=== PATIENT | male | born 1960 | race Caucasian/White ===

== ENCOUNTER 2017-08-25 10:54 | Emergency (ER) | payer OTHER ==
[~2017-08-25] VITALS: Ht 172.7 cm; Wt 100.0 kg
[~2017-08-25 10:54] MED LIST: ASPI-101 PO; DIOV320T PO; LIPI20TA PO; METF10004 PO
[2017-08-25] MEDS ORDERED: IBUP-1022 PO (11:16)
[2017-08-25] MEDS ORDERED: TYLE325T5 PO (11:16)
[2017-08-25] MEDS ORDERED: CYCL5TAB (11:16)
[2017-08-25 12:00] LABS: BASO % 0.3 % (0.0-1.0); EOS # 0.1 10^3/uL (0.0-0.50); EOS % 0.9 % (0.0-3.0); IMMATURE GRANULOCYTE % 0.4 % (0-0); LYMPH # 1.4 10^3/uL (1.5-4.5); LYMPH % 16.9 % (24.0-44.0); MEAN CORPUSCULAR HEMOGLOBIN 27.8 pg (27.0-33.0); MEAN CORPUSCULAR HGB CONC 33.4 g/dl (32.0-36.5); MEAN CORPUSCULAR VOLUME 83.3 fl (80.0-96.0); MONO # 0.7 10^3/uL (0.0-0.8); MONO % 8.3 % (0.0-5.0); NEUTROPHILS # 5.9 10^3/uL (1.8-7.7); NEUTROPHILS % 73.2 % (36.0-66.0); PLATELET COUNT, AUTOMATED 240 10^3/uL (150-450); RED CELL DISTRIBUTION WIDTH 13.7 % (11.5-14.5)
[2017-08-25 12:31] LABS: ANION GAP 6 MEQ/L (8-16); BLOOD UREA NITROGEN 14 MG/DL (7-18); CALCIUM LEVEL 8.6 MG/DL (8.5-10.1); CARBON DIOXIDE LEVEL 28 MEQ/L (21-32); CHLORIDE LEVEL 102 MEQ/L (98-107); CREATININE FOR GFR 1.06 MG/DL (0.70-1.30); GLOMERULAR FILTRATION RATE > 60.0 (>56); GLUCOSE, FASTING 289 MG/DL (70-105); POTASSIUM SERUM 4.2 MEQ/L (3.5-5.1); SODIUM LEVEL 136 MEQ/L (136-145)
[2017-08-25 12:57] LABS: ERYTHROCYTE SEDIMENTATION RATE 2 mm/hr (0-20)
--- NOTE | 2017-08-25 13:14 | REP ---
LEFT KNEE, FIVE VIEWS: HISTORY: Pain. There is no acute fracture or dislocation. There is narrowing of the medial knee joint space. IMPRESSION: Degenerative change as described above. Signed by Dm Rjoas MD 08/25/2017 01:20 P
[2017-08-25] MEDS ORDERED: NAPR500T3 PO (13:21)
[2017-08-25] MEDS ORDERED: KETOROLAC 60 MG/2 ML VIAL (J1885) IM ONE (13:30)
[2017-08-25 14:01] VITALS: BP 148/80
== END 2017-08-25 14:04 | disposition home or self-care (01) ==
LOC: M ED 10:54
DX: M25.562 Pain in left knee (principal); R73.9 Hyperglycemia, unspecified; Z87.891 Personal history of nicotine dependence
CPT/HCPCS: 73564; 80048; 85025; 85652; 86140; 96372; 99284; J1885

== ENCOUNTER → 2017-08-29 | Outpatient (REF) | payer OTHER ==
[~2017-08-29] MED LIST changes: +CYCL5TAB; +IBUP-1022 PO; +NAPR500T3 PO; +TYLE325T5 PO
[2017-08-29 19:15] LABS: CHOLESTEROL LEVEL 270 MG/DL (<200); TRIGLYCERIDES LEVEL 244 MG/DL (<150)
[2017-08-30 11:29] LABS: HEPATITIS B SURFACE ANTIBODY POSITIVE (POSITIVE)
== END ==
LOC: M SFHCPLAZ 15:36
DX: E11.9 Type 2 diabetes mellitus without complications (principal); E78.5 Hyperlipidemia, unspecified

== ENCOUNTER 2017-10-31 09:06 | Day surgery (SDC) | payer OTHER ==
[2017-10-31] MEDS: NS 1,000 ML IV (09:30)
[2017-10-31] MEDS ORDERED: PROPOFOL 200 MG/20 ML VIAL As Ordered ×2 (10:51)
[2017-10-31] MEDS ORDERED: LIDOCAINE 2% INJ 100 MG/5 ML SDV (FOR ANES.) As Ordered (10:51)
== END 2017-10-31 11:50 | disposition home or self-care (01) ==
LOC: M OPP 09:06
DX: Z12.11 Encounter for screening for malignant neoplasm of colon (principal); K64.8 Other hemorrhoids; I10 Essential (primary) hypertension; E78.5 Hyperlipidemia, unspecified; E11.9 Type 2 diabetes mellitus without complications; M19.90 Unspecified osteoarthritis, unspecified site; Z85.51 Personal history of malignant neoplasm of bladder; Z86.13 Personal history of malaria; E66.9 Obesity, unspecified; Z79.82 Long term (current) use of aspirin; Z79.899 Other long term (current) drug therapy; Z79.84 Long term (current) use of oral hypoglycemic drugs
CPT/HCPCS: 45378

== ENCOUNTER 2017-12-02 09:00 | Outpatient (RCR) | payer OTHER | END 2017-12-21 | LOC: M PT 09:00 | DX: Z51.89 Encounter for other specified aftercare (principal); M19.90 Unspecified osteoarthritis, unspecified site | CPT/HCPCS: 97110 ==

== ENCOUNTER 2017-12-26 11:06 | Outpatient (RCR) | payer OTHER | END 2018-01-20 | LOC: M PT 11:06 | DX: Z51.89 Encounter for other specified aftercare (principal); M17.12 Unilateral primary osteoarthritis, left knee | CPT/HCPCS: 97110 ==

== ENCOUNTER → 2018-04-03 | Outpatient (REF) | payer OTHER ==
[2018-04-03 16:39] LABS: ESTIMATED AVERAGE GLUCOSE 280 MG/DL (60-110); HEMOGLOBIN A1c 11.4 %
[2018-04-03 18:22] LABS: MAU/CREAT RATIO 218.3 MCG/MG (0.0-30.0)
== END ==
LOC: M SFHCPLAZ 14:24
DX: E11.9 Type 2 diabetes mellitus without complications (principal)

== ENCOUNTER → 2018-07-10 | Outpatient (REF) | payer OTHER ==
[2018-07-10 16:09] LABS: APPEARANCE, URINE CLEAR (CLEAR); BACTERIA, URINE AUTO NEGATIVE (NEGATIVE); BASO % 0.4 % (0.0-1.0); BILIRUBIN, URINE AUTO NEGATIVE (NEGATIVE); BLOOD, URINE BLOOD NEGATIVE (NEGATIVE); COLOR, URINE YELLOW (YELLOW); EOS # 0.2 10^3/uL (0.0-0.50); EOS % 2.2 % (0.0-3.0); GLUCOSE, URINE (UA) AUTO 3+ mg/dL (NEGATIVE); HEMATOCRIT 42.8 % (42.0-52.0); IMMATURE GRANULOCYTE % 0.3 % (0-3.0); KETONE, URINE AUTO NEGATIVE (NEGATIVE); LEUKOCYTE ESTERASE, URINE AUTO NEGATIVE (NEGATIVE); LYMPH % 28.9 % (24.0-44.0); MEAN CORPUSCULAR HEMOGLOBIN 27.2 pg (27.0-33.0); MEAN CORPUSCULAR HGB CONC 32.7 g/dl (32.0-36.5); MEAN CORPUSCULAR VOLUME 83.1 fl (80.0-96.0); MONO # 0.8 10^3/uL (0.0-0.8); MONO % 11.8 % (0.0-5.0); MUCUS, URINE SMALL (NEGATIVE); NEUTROPHILS # 3.9 10^3/uL (1.8-7.7); NEUTROPHILS % 56.4 % (36.0-66.0); NITRITE, URINE AUTO NEGATIVE (NEGATIVE); PLATELET COUNT, AUTOMATED 248 10^3/uL (150-450); PROTEIN, URINE AUTO NEGATIVE (NEGATIVE); RBC, URINE AUTO 2 /HPF (0-3); RED BLOOD COUNT 5.15 10^6/uL (4.30-6.10); RED CELL DISTRIBUTION WIDTH 13.9 % (11.5-14.5); SPECIFIC GRAVITY URINE AUTO 1.017 (1.002-1.035); SQUAMOUS EPITHELIAL CELL UR AU 0 /HPF (0-6); WBC, URINE AUTO 2 /HPF (0-3)
[2018-07-10 16:18] LABS: ALBUMIN/GLOBULIN RATIO 1.21 (1.00-1.93); ALKALINE PHOSPHATASE 88 U/L (45-117); ALT/SGPT 16 U/L (12-78); ANION GAP 6 MEQ/L (8-16); AST/SGOT 7 U/L (7-37); BILIRUBIN,TOTAL 0.4 MG/DL (0.2-1.0); BLOOD UREA NITROGEN 13 MG/DL (7-18); CALCIUM LEVEL 9.4 MG/DL (8.8-10.2); CARBON DIOXIDE LEVEL 27 MEQ/L (21-32); CHLORIDE LEVEL 107 MEQ/L (98-107); CHOLESTEROL LEVEL 140 MG/DL (<200); CHOLESTEROL RISK RATIO 3.589 (<5); GLOMERULAR FILTRATION RATE > 60.0 (>49); GLUCOSE, FASTING 177 MG/DL (70-100); HDL CHOLESTEROL 39 MG/DL (>40); LDL CHOLESTEROL 77 MG/DL (<100); NON-HDL-C 101 MG/DL; POTASSIUM SERUM 4.2 MEQ/L (3.5-5.1); SODIUM LEVEL 140 MEQ/L (136-145); TOTAL PROTEIN 7.3 GM/DL (6.4-8.2); TRIGLYCERIDES LEVEL 118 MG/DL (<150)
[2018-07-10 16:37] LABS: MALB URINE SIEMENS 36.6 MG/L
[2018-07-10 16:55] LABS: MAU/CREAT RATIO 30.5 MCG/MG (0.0-30.0)
[2018-07-10 17:19] LABS: ESTIMATED AVERAGE GLUCOSE 169 MG/DL (60-110); HEMOGLOBIN A1c 7.5 %
== END ==
LOC: M SFHCPLAZ 14:35
DX: E11.9 Type 2 diabetes mellitus without complications (principal); E78.5 Hyperlipidemia, unspecified; Z85.51 Personal history of malignant neoplasm of bladder; I10 Essential (primary) hypertension

== ENCOUNTER → 2019-04-27 | Outpatient (CLI) | payer OTHER ==
[~2019-04-27] MED LIST changes: +8 HO650T2 PO; -ASPI-101 PO; +ASPI-225 PO; +ASPI81TA85 PO; +DILT180C28 PO; +METF500T13 PO; +NAPR-885 PO; -NAPR500T3 PO
--- NOTE | 2019-04-28 04:22 | REP ---
Clinical: Left shoulder pain . Technique: Internal rotation, external rotation, and Y view left shoulder . Findings: No acute fracture or dislocation. The acromioclavicular and glenohumeral joints are intact. No periarticular calcifications or degenerative changes are appreciated. Sub acromial space is normal. Surrounding soft tissues are unremarkable. Impression: Normal left shoulder radiographs. Electronically Signed by Tobias Murphy MD 04/28/2019 04:13 A
== END ==
LOC: M RAD 12:43
PROVIDERS: ATTEND Student in an Organized Health Care Education/Training Program
DX: M25.512 Pain in left shoulder (principal)

== ENCOUNTER → 2019-06-29 | Outpatient (CLI) | payer OTHER ==
[2019-06-29 09:30] LABS: HEMOGLOBIN A1c 8.2 %
== END ==
LOC: M LAB 08:24
PROVIDERS: ATTEND Student in an Organized Health Care Education/Training Program
DX: E11.9 Type 2 diabetes mellitus without complications (principal)

== ENCOUNTER → 2019-07-07 | Outpatient (REF) | payer OTHER ==
[2019-07-07 16:57] LABS: APPEARANCE, URINE CLEAR (CLEAR); BACTERIA, URINE AUTO NEGATIVE (NEGATIVE); BILIRUBIN, URINE AUTO NEGATIVE (NEGATIVE); BLOOD, URINE BLOOD NEGATIVE (NEGATIVE); COLOR, URINE YELLOW (YELLOW); GLUCOSE, URINE (UA) AUTO 3+ mg/dL (NEGATIVE); KETONE, URINE AUTO TRACE mg/dL (NEGATIVE); LEUKOCYTE ESTERASE, URINE AUTO NEGATIVE (NEGATIVE); NITRITE, URINE AUTO NEGATIVE (NEGATIVE); PROTEIN, URINE AUTO NEGATIVE (NEGATIVE); RBC, URINE AUTO 0 /HPF (0-3); SPECIFIC GRAVITY URINE AUTO 1.013 (1.002-1.035); SQUAMOUS EPITHELIAL CELL UR AU 0 /HPF (0-6); UROBILINOGEN, URINE AUTO 0.2 mg/dL (0.0-2.0); WBC, URINE AUTO 0 /HPF (0-3)
== END ==
LOC: M SFHCPLAZ 16:07
PROVIDERS: ATTEND Student in an Organized Health Care Education/Training Program
DX: Z85.51 Personal history of malignant neoplasm of bladder (principal)

== ENCOUNTER → 2019-08-26 | Outpatient (REF) | payer OTHER | LOC: M LABSMT 09:29 | PROVIDERS: ATTEND Urology | DX: Z85.51 Personal history of malignant neoplasm of bladder (principal); Z53.9 Procedure and treatment not carried out, unspecified reason ==

== ENCOUNTER → 2019-08-26 | Outpatient (CLI) | payer OTHER ==
--- NOTE | 2019-08-26 10:53 | REPPI ---
Clinical: History of bladder cancer. Comparison: 01/09/2015 . Technique: PA and lateral. Findings: The mediastinum and cardiac silhouette are normal. The lung calvo are clear and without acute consolidation, effusion, or pneumothorax. The skeletal structures are intact and normal. Impression: 1. No acute cardiopulmonary process. Electronically Signed by Tobias Murphy MD 08/26/2019 10:44 A
[2019-08-26 15:50] LABS: BLOOD UREA NITROGEN 15 MG/DL (7-18); CALCIUM LEVEL 9.2 MG/DL (8.8-10.2); CARBON DIOXIDE LEVEL 29 MEQ/L (21-32); CHLORIDE LEVEL 105 MEQ/L (98-107); CREATININE FOR GFR 0.87 MG/DL (0.70-1.30); GLOMERULAR FILTRATION RATE > 60.0 (>49); GLUCOSE, FASTING 149 MG/DL (70-100); POTASSIUM SERUM 4.5 MEQ/L (3.5-5.1); SODIUM LEVEL 139 MEQ/L (136-145)
[2019-08-26 15:56] LABS: INR 0.97; PROTHROMBIN TIME 12.6 SECONDS (11.8-14.0)
[2019-08-26 16:09] LABS: HEMATOCRIT 49.9 % (42.0-52.0); HEMOGLOBIN 15.8 g/dl (13.5-17.5); MEAN CORPUSCULAR HEMOGLOBIN 27.3 pg (27.0-33.0); MEAN CORPUSCULAR HGB CONC 31.7 g/dl (32.0-36.5); MEAN CORPUSCULAR VOLUME 86.3 fl (80.0-96.0); PLATELET COUNT, AUTOMATED 237 10^3/uL (150-450); RED BLOOD COUNT 5.78 10^6/uL (4.30-6.10); WHITE BLOOD COUNT 8.2 10^3/uL (4.0-10.0)
== END ==
LOC: M PLAIMG 10:05
PROVIDERS: ATTEND Urology
DX: Z85.51 Personal history of malignant neoplasm of bladder (principal)

== ENCOUNTER 2019-09-07 07:29 | Day surgery (SDC) | payer OTHER ==
[~2019-09-07] VITALS: Ht 172.7 cm; Wt 108.8 kg
[~2019-09-07 07:29] MED LIST changes: +DILT240C82 PO; +LIDOCAINE 1% MDV 20ML VIAL SQ PRN; +LR 1,000 ML IV ONE; +TRUL10IN SC; +ceFAZolin SOD 2 GM in IV 1 EA IV ONE
[2019-09-07] MEDS ORDERED: ONDANSETRON 4MG/2ML VIAL (J2405) As Ordered ONE (08:17)
[2019-09-07] MEDS ORDERED: ROCURONIUM BROMIDE 50 MG/5 ML VIAL As Ordered ONE (08:17)
[2019-09-07] MEDS ORDERED: PROPOFOL 200 MG/20 ML VIAL As Ordered ONE ×2 (08:17→08:59)
[2019-09-07] MEDS ORDERED: LIDOCAINE 2% INJ 100 MG/5 ML SDV (FOR ANES.) As Ordered ONE (08:17)
[2019-09-07] MEDS ORDERED: fentaNYL 250 MCG/5 ML INJECTION (J3010) As Ordered ONE (08:18)
[2019-09-07] MEDS ORDERED: MIDAZOLAM INJ 2 MG/2 ML VIAL (J2250) As Ordered ONE (08:18)
[2019-09-07] MEDS ORDERED: dexameTHASONE 4 MG/ML 1ML VIAL (J1100) As Ordered ONE (08:20)
[2019-09-07] MEDS ORDERED: ePHEDrine SULFATE 25 MG/5 ML(5MG/ML) SYRINGE As Ordered ONE (09:51)
[2019-09-07] MEDS ORDERED: SUGAMMADEX SODIUM 500 MG/5 ML VIAL (BRIDION) As Ordered ONE (09:56)
[2019-09-07] MEDS ORDERED: KETOROLAC 60 MG/2 ML VIAL (J1885) As Ordered ONE (09:57)
[2019-09-07] MEDS ORDERED: ONDANSETRON 4MG/2ML VIAL (J2405) IV PRN (10:30)
[2019-09-07] MEDS ORDERED: HYDROMORPHONE HCL 0.5 MG/ 0.5 ML SYRINGE (J1170 PER 1) IV PRN (10:30)
[2019-09-07] MEDS ORDERED: LR 1,000 ML IV SCH ×2 (10:30→11:46)
[2019-09-07] MEDS ORDERED: PERCOCET 5MG/325MG TAB PO PRN (10:30)
[2019-09-07] MEDS ORDERED: fentaNYL 100 MCG/2 ML INJECTION (J3010) IV PRN (10:30)
[2019-09-07 13:40] VITALS: BP 150/78
--- NOTE | 2019-09-08 13:23 | RO ---
DATE OF SURGERY: 09/07/2019 PREPROCEDURE DIAGNOSIS: Recurrent bladder tumor. POSTPROCEDURE DIAGNOSIS: Recurrent bladder turmor. PROCEDURE: Cystoscopy with transurethral resection of prostate (TURP) bladder tumor and fulguration. SURGEON: Dr. Perez Mast WHIZZER HAND: ANESTHESIA: General. INDICATION FOR OPERATION: This is a 59-year-old white male with a history of tumor. A recent surveillance cystoscopy showed the patient with possible recurrence and was referred back to the operating room for a resection. DESCRIPTION OF PROCEDURE: The patient was placed on the table in a supine position and given general anesthesia. He was then placed in the lithotomy position, prepped with Betadine paint and draped in an aseptic manner. Time-out was then performed. A 26 Armenian continuous resectoscope was then inserted into the meatus and advanced under direct vision of a 30 degree lens to the bladder. The prostate channel appeared normal. In the bladder, the mucosa was surveilled and he had some irregularities on the left side of the bladder near the ureteral orifice. These areas were resected and cauterized. The chips were retrieved and the bladder drained and cystoscope was removed. Rectal examination showed a benign prostate. The patient was then awakened and sent to recovery room in stable condition having tolerated the procedure well.
== END 2019-09-07 13:55 | disposition home or self-care (01) ==
LOC: M SDC 07:29
PROVIDERS: ATTEND Urology
DX: D30.3 Benign neoplasm of bladder (principal); Z85.51 Personal history of malignant neoplasm of bladder; E11.9 Type 2 diabetes mellitus without complications; I10 Essential (primary) hypertension; E78.49 Other hyperlipidemia; Z79.84 Long term (current) use of oral hypoglycemic drugs; Z79.899 Other long term (current) drug therapy
CPT/HCPCS: 52234; 88305; J0690; J1100; J1885; J2250; J2405; J3010

== ENCOUNTER → 2019-09-25 | Outpatient (CLI) | payer OTHER ==
[~2019-09-25] MED LIST changes: -LIDOCAINE 1% MDV 20ML VIAL SQ PRN; -LR 1,000 ML IV ONE; -ceFAZolin SOD 2 GM in IV 1 EA IV ONE
--- NOTE | 2019-09-25 16:42 | REP ---
Clinical: Back pain. Technique: AP, lateral, bilateral oblique, and coned-down views of the lumbosacral spine. Findings: Alignment and lordosis maintained. No acute fracture / compression injury or subluxation. Mild/moderate age-related degenerative changes noted. No spondylolysis or spondylolisthesis. Impression: Normal alignment without acute fracture / compression injury or subluxation. Mild age-related changes. Electronically Signed by Tobias Murphy MD 09/25/2019 04:34 P
--- NOTE | 2019-09-25 16:43 | REP ---
Clinical: Right hip pain. Technique: Neutral and frog lateral views of the right hip. Findings: Generalized age-related changes are appreciated. No overt arthritic changes. No acute fracture or dislocation. Impression: Generalized age-related changes. No acute fracture or dislocation. Electronically Signed by Tobias Murphy MD 09/25/2019 04:35 P
--- NOTE | 2019-09-25 16:45 | REP ---
Clinical: Pain. Technique: AP, lateral, bilateral oblique and sunrise views of the right knee. Findings: The examination is essentially normal for age. No overt arthritic changes. No acute fracture or dislocation. No effusion. Impression: Age-appropriate right knee radiographs. Electronically Signed by Tobias Murphy MD 09/25/2019 04:36 P
== END ==
LOC: M WUC 16:03
PROVIDERS: ATTEND Physician Assistant
DX: M54.5 Low back pain (principal); S76.111A Strain of right quadriceps muscle, fascia and tendon, initial encounter; X58.XXXA Exposure to other specified factors, initial encounter; Y92.9 Unspecified place or not applicable

== ENCOUNTER 2019-10-22 09:09 | Outpatient (RCR) | payer OTHER ==
[~2019-10-22 09:09] MED LIST changes: -ASPI-225 PO; +ASPI81TA78 PO
== END 2019-10-23 ==
LOC: M PT 09:09
DX: M25.561 Pain in right knee (principal)

== ENCOUNTER → 2019-10-23 | Outpatient (CLI) | payer OTHER ==
[2019-10-23 09:42] LABS: CREATININE, URINE 52.6 MG/DL
[2019-10-23 12:10] LABS: HEMOGLOBIN A1c 8.9 %
== END ==
LOC: M LAB 08:22
PROVIDERS: ATTEND Student in an Organized Health Care Education/Training Program
DX: E11.9 Type 2 diabetes mellitus without complications (principal)

== ENCOUNTER 2019-11-02 08:23 | Outpatient (RCR) | payer OTHER | END 2019-11-21 | LOC: M PT 08:23 | DX: M25.561 Pain in right knee (principal) ==

== ENCOUNTER → 2019-12-11 | Outpatient (CLI) | payer OTHER ==
[2019-12-11 17:22] LABS: BLOOD UREA NITROGEN 14 MG/DL (7-18); CREATININE FOR GFR 0.91 MG/DL (0.70-1.30); GLOMERULAR FILTRATION RATE > 60.0 (>49)
[2019-12-11 17:35] LABS: INR 0.96; PROTHROMBIN TIME 12.5 SECONDS (11.8-14.0)
== END ==
LOC: M PLALAB 14:29
PROVIDERS: ATTEND Physical Medicine & Rehabilitation
DX: M48.061 Spinal stenosis, lumbar region without neurogenic claudication (principal)

== ENCOUNTER → 2019-12-22 | Outpatient (RCR) | payer OTHER | LOC: M PT 07:53 | PROVIDERS: ATTEND Orthopaedic Surgery | DX: M51.26 Other intervertebral disc displacement, lumbar region (principal) ==

== ENCOUNTER → 2020-01-21 | Outpatient (RCR) | payer OTHER | LOC: M PT 12-28 09:24 | PROVIDERS: ATTEND Orthopaedic Surgery | DX: M48.061 Spinal stenosis, lumbar region without neurogenic claudication (principal) ==

== ENCOUNTER 2020-02-02 00:33 | Emergency (ER) | payer OTHER ==
[~2020-02-02] VITALS: Ht 172.7 cm; Wt 111.3 kg
[2020-02-02] MEDS ORDERED: LISI-538 PO (00:39)
[2020-02-02] MEDS ORDERED: ACET-841 PO (00:42)
[2020-02-02] MEDS ORDERED: KETOROLAC 60 MG/2 ML VIAL IM ONE (01:45)
[2020-02-02] MEDS ORDERED: ROBA750T4 PO (02:09)
[2020-02-02] MEDS ORDERED: OXYCODONE/APAP 5MG/325MG(BULK FOR ED) 1 TABLET PO ONE (02:15)
[2020-02-02 02:41] VITALS: BP 179/92
== END 2020-02-02 02:42 | disposition home or self-care (01) ==
LOC: M ED 00:33
DX: M54.16 Radiculopathy, lumbar region (principal); I10 Essential (primary) hypertension; E11.9 Type 2 diabetes mellitus without complications; E78.5 Hyperlipidemia, unspecified; M51.37 Other intervertebral disc degeneration, lumbosacral region; M48.00 Spinal stenosis, site unspecified; Z85.51 Personal history of malignant neoplasm of bladder; Z79.899 Other long term (current) drug therapy; Z79.84 Long term (current) use of oral hypoglycemic drugs; Z79.82 Long term (current) use of aspirin
CPT/HCPCS: 96372; 99283; J1885

== ENCOUNTER → 2020-03-01 | Outpatient (REF) | payer OTHER ==
[~2020-03-01] MED LIST changes: +ACET-841 PO; +LISI-538 PO; +ROBA750T4 PO
[2020-03-01 12:22] LABS: HEMOGLOBIN A1c 8.9 %
[2020-03-01 12:35] LABS: MALB URINE SIEMENS 76.6 MG/L
== END ==
LOC: M PLALAB 08:28
PROVIDERS: ATTEND Student in an Organized Health Care Education/Training Program
DX: E11.29 Type 2 diabetes mellitus with other diabetic kidney complication (principal)

== ENCOUNTER → 2020-03-21 | Outpatient (REF) | payer OTHER | LOC: M SMT 14:58 | PROVIDERS: ATTEND Urology | DX: Z85.51 Personal history of malignant neoplasm of bladder (principal) ==

== ENCOUNTER 2020-05-01 22:40 | Emergency (ER) | payer OTHER ==
[~2020-05-01 22:40] MED LIST changes: -ASPI81TA85 PO; +ASPI81TA86 PO
[2020-05-02] MEDS ORDERED: methylPREDNISolone 125MG 2ML VIAL ONE (00:09)
[2020-05-02] MEDS ORDERED: KETOROLAC 60MG 2ML VIAL ONE (00:09)
[2020-05-02] MEDS ORDERED: KETOROLAC 60MG 2ML VIAL As Ordered ONE (00:09)
[2020-05-02] MEDS ORDERED: methylPREDNISolone 125MG 2ML VIAL As Ordered ONE (00:09)
== END 2020-05-02 00:50 | disposition home or self-care (01) ==
LOC: M ED 22:40
DX: G89.29 Other chronic pain (principal); M54.5 Low back pain; E11.9 Type 2 diabetes mellitus without complications; I10 Essential (primary) hypertension; E78.5 Hyperlipidemia, unspecified; E66.9 Obesity, unspecified; Z79.899 Other long term (current) drug therapy
CPT/HCPCS: 96372; 99283; J1885; J2930

== ENCOUNTER 2020-05-04 07:34 | Inpatient (IN) | payer OTHER ==
[~2020-05-04 07:34] MED LIST changes: +ACETAMINOPHEN 500 MG TAB As Ordered ONE; +ACETAMINOPHEN 500 MG TAB ONE; +LIDOCAINE 5% (LIDODERM) PATCH As Ordered ONE; +LIDOCAINE 5% (LIDODERM) PATCH ONE
[2020-05-04] MEDS ORDERED: methylPREDNISolone 125MG 2ML VIAL ONE (09:39)
[2020-05-04] MEDS ORDERED: methylPREDNISolone 125MG 2ML VIAL As Ordered ONE (09:39)
[2020-05-04] MEDS ORDERED: KETOROLAC 30 MG/ML 1ML VIAL ONE (09:39)
[2020-05-04] MEDS ORDERED: KETOROLAC 30 MG/ML 1ML VIAL As Ordered ONE (09:39)
[2020-05-04] MEDS ORDERED: ONDANSETRON 4MG/2ML VIAL As Ordered ONE (11:49)
[2020-05-04] MEDS ORDERED: ONDANSETRON 4MG/2ML VIAL ONE (11:49)
[2020-05-04] MEDS ORDERED: MORPHINE 4 MG/ML 1ML VIAL/SYRINGE (J2270) ONE (11:49)
[2020-05-04] MEDS ORDERED: MORPHINE 4 MG/ML 1ML VIAL/SYRINGE (J2270) As Ordered ONE (11:49)
[2020-05-04] MEDS ORDERED: oxyCODONE 5MG TAB As Ordered ONE (22:08)
[2020-05-04] MEDS ORDERED: HEPARIN SOD (PORCINE) 5000UNITS/ML 1ML VIAL/SYRINGE ONE (22:08)
[2020-05-04] MEDS ORDERED: metFORMIN (GLUCOPHAGE) 1000 MG TABLET ONE (22:08)
[2020-05-04] MEDS ORDERED: HEPARIN SOD (PORCINE) 5000UNITS/ML 1ML VIAL/SYRINGE As Ordered ONE (22:08)
[2020-05-04] MEDS ORDERED: oxyCODONE 5MG TAB ONE (22:08)
[2020-05-04] MEDS ORDERED: metFORMIN (GLUCOPHAGE) 1000 MG TABLET As Ordered ONE (22:09)
[2020-05-04] MEDS ORDERED: HumaLOG INSULIN (NovoLOG) PER UNIT As Ordered ONE (23:30)
[2020-05-04] MEDS ORDERED: ACETAMINOPHEN TAB 650MG DOSE (2X325MG) As Ordered ONE (23:31)
[2020-05-04] MEDS ORDERED: HumaLOG INSULIN (NovoLOG) PER UNIT ONE (23:31)
[2020-05-04] MEDS ORDERED: LEVEMIR (INSULIN DETEMIR) 1 UNITS/0.01ML ONE (23:31)
[2020-05-04] MEDS ORDERED: ACETAMINOPHEN TAB 650MG DOSE (2X325MG) ONE (23:31)
[2020-05-04] MEDS ORDERED: LEVEMIR (INSULIN DETEMIR) 1 UNITS/0.01ML As Ordered ONE (23:32)
[2020-05-05] MEDS ORDERED: HEPARIN SOD (PORCINE) 5000UNITS/ML 1ML VIAL/SYRINGE ONE (07:36)
[2020-05-05] MEDS ORDERED: ACETAMINOPHEN TAB 650MG DOSE (2X325MG) As Ordered ONE (07:36)
[2020-05-05] MEDS ORDERED: HEPARIN SOD (PORCINE) 5000UNITS/ML 1ML VIAL/SYRINGE As Ordered ONE (07:36)
[2020-05-05] MEDS ORDERED: ACETAMINOPHEN TAB 650MG DOSE (2X325MG) ONE (07:36)
[2020-05-05] MEDS ORDERED: NAPROXEN 250 MG TAB ONE (08:03)
[2020-05-05] MEDS ORDERED: ASPIRIN 81 MG ENTERIC TAB ONE (08:03)
[2020-05-05] MEDS ORDERED: PANTOPRAZOLE 40MG TAB (PROTONIX) ONE (08:03)
[2020-05-05] MEDS ORDERED: DOCUSATE SODIUM 100 MG CAP As Ordered ONE (08:03)
[2020-05-05] MEDS ORDERED: metFORMIN (GLUCOPHAGE) 1000 MG TABLET ONE (08:03)
[2020-05-05] MEDS ORDERED: oxyCODONE 5MG TAB As Ordered ONE (08:03)
[2020-05-05] MEDS ORDERED: oxyCODONE 5MG TAB ONE (08:03)
[2020-05-05] MEDS ORDERED: HumaLOG INSULIN (NovoLOG) PER UNIT ONE (08:03)
[2020-05-05] MEDS ORDERED: DOCUSATE SODIUM 100 MG CAP ONE (08:03)
[2020-05-05] MEDS ORDERED: lisinopriL 20 MG TAB ONE (08:03)
[2020-05-05] MEDS ORDERED: ATORVASTATIN 20 MG TAB ONE (08:03)
[2020-05-05] MEDS ORDERED: ATORVASTATIN 20 MG TAB As Ordered ONE (08:03)
[2020-05-05] MEDS ORDERED: HumaLOG INSULIN (NovoLOG) PER UNIT As Ordered ONE (08:05)
[2020-05-05] MEDS ORDERED: PANTOPRAZOLE 40MG TAB (PROTONIX) As Ordered ONE (08:05)
[2020-05-05] MEDS ORDERED: ASPIRIN 81 MG ENTERIC TAB As Ordered ONE (08:06)
[2020-05-05] MEDS ORDERED: metFORMIN (GLUCOPHAGE) 1000 MG TABLET As Ordered ONE (08:06)
[2020-05-05] MEDS ORDERED: NAPROXEN 250 MG TAB As Ordered ONE (08:06)
[2020-05-05] MEDS ORDERED: lisinopriL 20 MG TAB As Ordered ONE (08:06)
[2020-06-22 20:15] LABS: BASO % 0.4 % (0.0-1.0); EOS # 0.1 10^3/uL (0.0-0.5); EOS % 0.7 % (0.0-3.0); HEMATOCRIT 44.2 % (42.0-52.0); HEMOGLOBIN 14.5 g/dl (13.5-17.5); LYMPH # 2.9 10^3/uL (1.5-5.0); LYMPH % 34.1 % (24.0-44.0); MEAN CORPUSCULAR HEMOGLOBIN 26.8 pg (27.0-33.0); MEAN CORPUSCULAR HGB CONC 32.8 g/dl (32.0-36.5); MEAN CORPUSCULAR VOLUME 81.5 fl (80.0-96.0); MONO # 0.8 10^3/uL (0.0-0.8); NEUTROPHILS # 4.7 10^3/uL (1.5-8.5); NEUTROPHILS % 55.3 % (36.0-66.0); PLATELET COUNT, AUTOMATED 243 10^3/uL (150-450); RED BLOOD COUNT 5.42 10^6/uL (4.30-6.10); WHITE BLOOD COUNT 8.4 10^3/uL (4.0-10.0)
[2020-06-26 16:43] LABS: HEMATOCRIT 45.5 % (42.0-52.0); MEAN CORPUSCULAR HEMOGLOBIN 27.1 pg (27.0-33.0); MEAN CORPUSCULAR VOLUME 82.1 fl (80.0-96.0); PLATELET COUNT, AUTOMATED 281 10^3/uL (150-450); RED BLOOD COUNT 5.54 10^6/uL (4.30-6.10); WHITE BLOOD COUNT 10.2 10^3/uL (4.0-10.0)
[2020-07-27 04:46] LABS: BLOOD UREA NITROGEN 26 MG/DL (7-18); CALCIUM LEVEL 8.5 MG/DL (8.8-10.2); CARBON DIOXIDE LEVEL 28 MEQ/L (21-32); CHLORIDE LEVEL 108 MEQ/L (98-107); CREATININE FOR GFR 0.82 MG/DL (0.70-1.30); GLOMERULAR FILTRATION RATE > 60.0 (>49); GLUCOSE, FASTING 135 MG/DL (70-100); POTASSIUM SERUM 4.2 MEQ/L (3.5-5.1); SODIUM LEVEL 141 MEQ/L (136-145)
[2020-07-27 22:04] LABS: BLOOD UREA NITROGEN 16 MG/DL (7-18); CREATININE FOR GFR 0.83 MG/DL (0.70-1.30); GLOMERULAR FILTRATION RATE > 60.0 (>49); GLUCOSE, FASTING 193 MG/DL (70-100)
[2020-07-27 22:05] LABS: CALCIUM LEVEL 8.6 MG/DL (8.8-10.2); CARBON DIOXIDE LEVEL 30 mmol/L (20-29); CHLORIDE LEVEL 103 MEQ/L (98-107); POTASSIUM SERUM 4.3 MEQ/L (3.5-5.1); SODIUM LEVEL 136 MEQ/L (136-145)
== END 2020-05-05 10:00 | disposition home or self-care (01) | DRG 552 ==
LOC: M ED 07:34 → M PCU 07:35
PROVIDERS: ADMIT Internal Medicine; ATTEND Internal Medicine
DX: M54.5 Low back pain (principal); K21.9 Gastro-esophageal reflux disease without esophagitis; E11.9 Type 2 diabetes mellitus without complications; K64.8 Other hemorrhoids; M17.2 Bilateral post-traumatic osteoarthritis of knee; M17.12 Unilateral primary osteoarthritis, left knee; J42 Unspecified chronic bronchitis; Z85.51 Personal history of malignant neoplasm of bladder; Z79.899 Other long term (current) drug therapy

== ENCOUNTER 2020-05-08 15:09 | Emergency (ER) | payer OTHER ==
[~2020-05-08 15:09] MED LIST changes: -ACETAMINOPHEN 500 MG TAB As Ordered ONE; -ACETAMINOPHEN 500 MG TAB ONE; -LIDOCAINE 5% (LIDODERM) PATCH As Ordered ONE; -LIDOCAINE 5% (LIDODERM) PATCH ONE
[2020-05-08] MEDS ORDERED: MORPHINE 2 MG/ML 1ML VIAL (J2270) As Ordered ONE ×2 (15:59→17:11)
[2020-05-08] MEDS ORDERED: ONDANSETRON 4MG/2ML VIAL As Ordered ONE (15:59)
[2020-05-08] MEDS ORDERED: MORPHINE 2 MG/ML 1ML VIAL (J2270) ONE ×2 (16:00)
[2020-05-08] MEDS ORDERED: ONDANSETRON 4MG/2ML VIAL ONE (16:00)
[2020-06-20 22:41] LABS: BASO % 0.3 % (0.0-1.0); EOS # 0.1 10^3/uL (0.0-0.5); HEMATOCRIT 47.2 % (42.0-52.0); LYMPH # 2.4 10^3/uL (1.5-5.0); LYMPH % 27.9 % (24.0-44.0); MEAN CORPUSCULAR HGB CONC 33.9 g/dl (32.0-36.5); MEAN CORPUSCULAR VOLUME 79.6 fl (80.0-96.0); MONO # 0.7 10^3/uL (0.0-0.8); MONO % 8.4 % (0.0-5.0); NEUTROPHILS # 5.4 10^3/uL (1.5-8.5); NEUTROPHILS % 61.9 % (36.0-66.0); PLATELET COUNT, AUTOMATED 297 10^3/uL (150-450); RED BLOOD COUNT 5.93 10^6/uL (4.30-6.10); WHITE BLOOD COUNT 8.7 10^3/uL (4.0-10.0)
[2020-06-20 22:42] LABS: ERYTHROCYTE SEDIMENTATION RATE 1 mm/hr (0-20)
[2020-07-24 11:32] LABS: BLOOD UREA NITROGEN 14 MG/DL (7-18); CALCIUM LEVEL 9.3 MG/DL (8.8-10.2); CARBON DIOXIDE LEVEL 25 MEQ/L (21-32); CHLORIDE LEVEL 102 MEQ/L (98-107); CREATININE FOR GFR 0.96 MG/DL (0.70-1.30); GLOMERULAR FILTRATION RATE > 60.0 (>49); GLUCOSE, FASTING 214 MG/DL (70-100); POTASSIUM SERUM 4.2 MEQ/L (3.5-5.1); SODIUM LEVEL 136 MEQ/L (136-145)
== END 2020-05-08 18:30 | disposition home or self-care (01) ==
LOC: M ED 15:09
DX: G89.29 Other chronic pain (principal); M54.5 Low back pain; E11.9 Type 2 diabetes mellitus without complications; M51.37 Other intervertebral disc degeneration, lumbosacral region; Z79.84 Long term (current) use of oral hypoglycemic drugs; Z79.899 Other long term (current) drug therapy
CPT/HCPCS: 80048; 85025; 85652; 96374; 96375; 96376; 99284; J2270; J2405

== ENCOUNTER → 2020-05-21 | Outpatient (CLI) | payer OTHER ==
[~2020-05-21] MED LIST changes: +GABA-843; +METH750T2; +TRAM50TA2 PO
== END ==
LOC: M LABSMTC 14:13
PROVIDERS: ATTEND Physical Medicine & Rehabilitation
DX: Z20.828 Contact with and (suspected) exposure to other viral communicable diseases (principal)

== ENCOUNTER → 2020-05-23 | Outpatient (CLI) | payer OTHER ==
[2020-05-23 18:04] LABS: INR 0.96
[2020-05-23 18:05] LABS: PARTIAL THROMBOPLASTIN TIME 25.2 SECONDS (25.0-38.4)
[2020-05-23 18:07] LABS: COLLAGEN EPINEPHRINE 157 SECONDS (74-162)
== END ==
LOC: M LAB 16:43
PROVIDERS: ATTEND Physical Medicine & Rehabilitation
DX: M51.36 Other intervertebral disc degeneration, lumbar region (principal)

== ENCOUNTER → 2020-05-25 | Outpatient (CLI) | payer OTHER ==
[2020-05-25 11:47] LABS: PLATELET COUNT, AUTOMATED 254 10^3/uL (150-450)
== END ==
LOC: M LAB 08:22
PROVIDERS: ATTEND Physical Medicine & Rehabilitation
DX: Z01.818 Encounter for other preprocedural examination (principal); Z79.01 Long term (current) use of anticoagulants

== ENCOUNTER → 2020-06-29 | Outpatient (CLI) | payer OTHER | LOC: M LABSMTC 09:39 | PROVIDERS: ATTEND Physical Medicine & Rehabilitation | DX: Z11.59 Encounter for screening for other viral diseases (principal) ==

== ENCOUNTER 2020-07-08 17:04 | Emergency (ER) | payer OTHER ==
[~2020-07-08] VITALS: Ht 172.7 cm; Wt 108.6 kg
[~2020-07-08 17:04] MED LIST changes: -GABA-843; -METH750T2; -TRAM50TA2 PO
[2020-07-08] MEDS ORDERED: TRAM50TA2 PO (17:38)
[2020-07-08 18:31] VITALS: BP 156/102
== END 2020-07-08 18:33 | disposition home or self-care (01) ==
LOC: M ED 17:04
DX: M54.31 Sciatica, right side (principal); S39.012A Strain of muscle, fascia and tendon of lower back, initial encounter; X50.0XXA Overexertion from strenuous movement or load, initial encounter; Y92.89 Other specified places as the place of occurrence of the external cause; Y93.9 Activity, unspecified; Y99.0 Civilian activity done for income or pay; E11.9 Type 2 diabetes mellitus without complications; E78.5 Hyperlipidemia, unspecified; Z85.51 Personal history of malignant neoplasm of bladder; Z79.82 Long term (current) use of aspirin; Z79.84 Long term (current) use of oral hypoglycemic drugs; Z79.899 Other long term (current) drug therapy

== ENCOUNTER 2020-07-13 23:56 | Emergency (ER) | payer OTHER ==
[~2020-07-13] VITALS: Ht 172.7 cm; Wt 108.9 kg
[~2020-07-13 23:56] MED LIST changes: +TRAM50TA2 PO
[2020-07-14] MEDS ORDERED: GABA-843 (00:08)
[2020-07-14] MEDS ORDERED: METH750T2 (00:08)
[2020-07-14] MEDS ORDERED: methocarbamoL 750 MG TAB PO ONE (01:45)
[2020-07-14] MEDS ORDERED: LIDOCAINE 5% (LIDODERM) PATCH TD ONE (01:45)
[2020-07-14] MEDS ORDERED: predniSONE 50 MG TAB PO ONE (01:45)
[2020-07-14] MEDS ORDERED: oxyCODONE 5MG TAB PO ONE (01:45)
[2020-07-14 04:24] VITALS: BP 168/91
== END 2020-07-14 04:26 | disposition home or self-care (01) ==
LOC: M ED 23:56
DX: G89.29 Other chronic pain (principal); M54.9 Dorsalgia, unspecified; E11.9 Type 2 diabetes mellitus without complications; I10 Essential (primary) hypertension; E78.5 Hyperlipidemia, unspecified; M51.35 Other intervertebral disc degeneration, thoracolumbar region; M48.061 Spinal stenosis, lumbar region without neurogenic claudication; Z85.51 Personal history of malignant neoplasm of bladder; Z79.82 Long term (current) use of aspirin; Z79.84 Long term (current) use of oral hypoglycemic drugs; Z79.899 Other long term (current) drug therapy

== ENCOUNTER → 2020-07-18 | Outpatient (CLI) | payer OTHER ==
[~2020-07-18] MED LIST changes: +GABA-843; +METH750T2
[2020-07-18 18:16] LABS: BLOOD UREA NITROGEN 13 MG/DL (7-18); CREATININE FOR GFR 0.88 MG/DL (0.70-1.30); GLOMERULAR FILTRATION RATE > 60.0 (>49)
== END ==
LOC: M PLALAB 15:11
PROVIDERS: ATTEND Physical Medicine & Rehabilitation
DX: M47.816 Spondylosis without myelopathy or radiculopathy, lumbar region (principal)

== ENCOUNTER 2020-07-21 07:09 | Outpatient (RCR) | payer OTHER | END 2020-07-23 | LOC: M PT 07:09 | PROVIDERS: ATTEND Student in an Organized Health Care Education/Training Program | DX: M48.061 Spinal stenosis, lumbar region without neurogenic claudication (principal) ==

== ENCOUNTER → 2020-07-27 | Outpatient (CLI) | payer OTHER ==
[2020-07-27 19:22] LABS: CREATININE, URINE 41.9 MG/DL; MALB URINE SIEMENS 45.4 MG/L; MAU/CREAT RATIO 108.3 MCG/MG (0.0-30.0)
[2020-07-27 20:48] LABS: HEMOGLOBIN A1c 8.2 %
== END ==
LOC: M PLALAB 12:39
PROVIDERS: ATTEND Student in an Organized Health Care Education/Training Program
DX: E11.29 Type 2 diabetes mellitus with other diabetic kidney complication (principal)

== ENCOUNTER → 2020-08-04 | Outpatient (CLI) | payer OTHER ==
--- NOTE | 2020-08-06 01:36 | ECWPNPC ---
PATIENT NAME: DEANDRA HIGHTOWER : 1960 GENDER: MALE VISIT DATE: 08/04/2020 DISCHARGE DATE: 08/04/20943 VISIT LOCKED DATE TIME: PHYSICIAN: ELIAN LAUREN PHYSICIAN PAGER NO: ACTIVE RESOURCE: ELIAN LAUREN REASON FOR APPOINTMENT 1. SPINAL STENOSIS OF LUMBAR REGION HISTORY OF PRESENT ILLNESS GENERAL: - 60-YEAR-OLD MALE IN FOR INITIAL PAIN CONSULT. HE HAS COMPLAINTS OF LOW BACK PAIN FOR THE PAST 7-8 MONTHS. HE STATES BACK IN AUGUST OF LAST YEAR HE EXPERIENCED A FALL X2 WHICH STARTED HIS PAIN SINCE THAT TIME HE HAS HAD MULTIPLE FALLS. PATIENT HAS COMPLAINTS OF LOW BACK PAIN WITH RADICULOPATHY. PATIENT HAS BEEN SEEN BY NEUROLOGY AND HAS AN UPCOMING EMG STUDY. PATIENT IS CURRENTLY TAKING GABAPENTIN, MELOXICAM AND METHOCARBAMOL FOR HIS PAIN. HE STATES HE HAS BEEN ON OXYCODONE IN THE PAST AND FOUND THIS BENEFICIAL. FALL RISK SCREENING: SCREENING :TWO OR MORE FALLS WITH INJURY IN THE PAST YEAR PATIENT STATES 2 FALLS LAST AUGUST ON THE SAME DAY GETTING INTO THE CAR. STATES RIGHT LEG WENT NUMB AND STOPPED WORKING AND HE FELL ONTO HIS BACK ON THE GROUND. WENT TO URGENT CARE AFTER THE 2ND FALL. WAS REFERRED TO ORTHO AND PT FOLLOWING THIS. PAIN SCREENING: PATIENT HAS A COMPLAINT OF ACUTE OR CHRONIC PAIN :YES LOCATION OF PAIN:LOW BACK, RIGHT HIP, LEG(S) INTENSITY OF PAIN (SCALE OF 1 TO 10):4 AVG 4-10/DAILY WHAT DOES YOUR PAIN FEEL LIKE:STABBING, OTHER PRESSURE DURATION:CONTINOUS, CONSTANT PAIN IS INCREASED BY:ACTIVITIES, PROLONGED STANDING, OTHERS WALKING PAIN IS DECREASED BY:SITTING, OTHERS LAYING DOWN, HEAT, STRETCHING NURSING NOTE: -. PAIN CENTER INTAKE QUESTIONS: DO YOU HAVE A HISTORY OF MRSA? :NO DO YOU TAKE A BLOOD THINNERS? :NO DO YOU HAVE ANY BLEEDING DISORDERS? :NO ANY NEW NUMBNESS OR WEAKNESS IN YOUR LEGS OR ARMS? :YES RIGHT LEG NUMBNESS AND WEAKNESS ANY PACEMAKER,DEFIBRILLATOR, OR DORSAL COLUMN STIMULATOR? :NO DO YOU HAVE ANY RASHES OR OPEN SORES? :NO ARE YOU ALLERGIC TO IV DYE? :NO ARE YOU DIABETIC? :YES ANY NEW PROBLEMS WITH YOUR MEDICATIONS? :NO HAVE YOU RECEIVED A VACCINE IN THE PAST 30 DAYS? :YES IF SO WHAT VACCINE AND WHEN? FLU VACCINE SOMETIME WITHIN THE LAST 30 DAYS DO YOU PLAN TO RECEIVE A VACCINE IN THE NEXT 21 DAYS? :NO DO YOU NEED ANY PRESCRIPTION? :NO DO YOU TAKE ANY IMMUNOSUPPRESSIVE MEDICATIONS? :NO IS THERE A CHANCE YOU COULD BE ? :NO ARE YOU BREAST FEEDING? :NO CURRENT MEDICATIONS TAKING ONETOUCH VERIO W/DEVICE KIT DIRECTED INTRADERMALLY DAILY TAKING ASPIR-81 81 MG TABLET DELAYED RELEASE 1 TABLET ORALLY ONCE A DAY TAKING DILTIAZEM HCL ER 240 MG CAPSULE EXTENDED RELEASE 24 HOUR 1 CAPSULE ON AN EMPTY STOMACH IN THE MORNING ORALLY ONCE A DAY TAKING LISINOPRIL 20 MG TABLET 1 TABLET ORALLY ONCE A DAY TAKING ATORVASTATIN CALCIUM 40 MG TABLET TAKE 1 TABLET DAILY ORALLY DAILY TAKING ALCOHOL SWABS 70 % PAD DIRECTED _ BEFORE BEDTIME TAKING PEN NEEDLES 12/06" 31G X 5 MM MISCELLANEOUS DIRECTED INTRADERMALLY BEFORE BEDTIME TAKING ESOMEPRAZOLE MAGNESIUM 20 MG CAPSULE DELAYED RELEASE 1 CAPSULE ORALLY ONCE A DAY TAKING GABAPENTIN 600 MG TABLET 1 CAPSULE ORALLY TID TAKING MELOXICAM 15 MG TABLET 1 TABLET ORALLY ONCE A DAY TAKING METFORMIN HCL 1000 MG TABS 1 TABLET WITH MEALS TWICE A DAY ORALLY 90 DAYS ORALLY BID TAKING TRULICITY 1.5 MG/0.5ML SOLUTION PEN-INJECTOR DIRECTED SUBCUTANEOUS WEEKLY TAKING BASAGLAR KWIKPEN 100 UNIT/ML SOLUTION PEN-INJECTOR 30 UNITS SUBCUTANEOUS DAILY TAKING ACETAMINOPHEN 650 MG TABLET EXTENDED RELEASE 2 TABLETS ORALLY EVERY 8 HRS PRN TAKING METHOCARBAMOL 750 MG TABLET 1 TABLET ORALLY TID PRN, NOTES: HASN'T TAKEN YET NOT-TAKING CIALIS 5 MG TABLET 1 TABLET NEEDED ORALLY ONCE A DAY NOT-TAKING METHOCARBAMOL 750 MG TABLET 1 TABLET ORALLY EVERY 4 HRS NOT-TAKING JANUVIA 100 MG TABLET 1 TABLET ORALLY ONCE A DAY MEDICATION LIST REVIEWED AND RECONCILED WITH THE PATIENT PAST MEDICAL HISTORY DIABETES MELLITUS HYPERTENSION HYPERLIPIDEMIA BLADDER CANCER 10-YR ASCVD RISK: 27.9% CHRONIC LOW BACK PAIN DDD SPINAL STENOSIS ALLERGIES PERCOCET: UNEASINESS - SIDE EFFECTS SURGICAL HISTORY BLADDER SURGERY REMOVED TUMOR 03/2014 TURBT 05/2014 TURBT 01/14/15 CYSTOSCOPY 08/11/2019 TUMORS REMOVED FROM BLADDER 09/07/2019 CYSTOSCOPY 03/21/2020 TOSILLECTOMY AGE 18 FAMILY HISTORY FATHER: ALIVE 82 YRS, PACER, DIAGNOSED WITH DIABETES MOTHER: 82 YRS, PACER PATERNAL GRAND FATHER: PATERNAL GRAND MOTHER: MATERNAL GRAND FATHER: MATERNAL GRAND MOTHER: 3 BROTHER(S) , 1 SISTER(S) . 1 SON(S) , 1 DAUGHTER(S) . PATIENT STATES HIS PATERNAL GRANDFATHER HAD POLYPS REMOVED FROM HIS BLADDER. NO OTHER KNOWN FAMILY HISTORY OF ANYTHING RELATED TO UROLOGY. SON & DAUGHTER - ASTHMA, SEIZURES KIDSSIBLINGS - DIABETES, HTN. SOCIAL HISTORY GENERAL: TOBACCO USE ARE YOU A:FORMER SMOKER HOW LONG HAS IT BEEN SINCE YOU LAST SMOKED?1-5 YEARS LATEX QUESTIONNAIRE LATEX ALLERGY : HAVE YOU EVER DEVELOPED ANY TYPE OF REACTION AFTER HANDLING LATEX PRODUCTS SUCH RUBBER GLOVES, CONDOMS, DIAPHRAGMS, BALLOONS, SOCKS, OR UNDERWEAR?NO LATEX ALLERGY : HAVE YOU EVER DEVELOPED ANY TYPE OF REACTION DURING OR AFTER DENTAL APPOINTMENT, VAGINAL/RECTAL EXAMINATION, SURGICAL PROCEDURE, OR ANY OTHER EXPOSURE?NO LATEX RISK : HAVE YOU EVER HAD ANY DIFFICULTY BREATHING OR HIVES AFTER EATING OR HANDLING ANY FRUITS, OR VEGETABLES; SUCH KIWI, BANANAS, STONE FRUITS, OR CHESTNUTSNO LATEX RISK : DO YOU HAVE A PREVIOUS PERSONAL HISTORY OF MORE THAN NINE SURGERIES, SPINA BIFIDA, OR REPEATED CATHERIZATIONS? NO LATEX RISK : ARE YOU FREQUENTLY EXPOSED TO LATEX PRODUCTS IN YOUR OCCUPATION?NO DATE ASKED : 08/03/2020 ALCOHOL SCREENING POINTS: 2, INTERPRETATION: NEGATIVE. RECREATIONAL DRUG USE DRUG USE?NO CAFFEINE >5/DAY. SEXUAL HX HAD SEX IN THE LAST 12 MONTHS (VAGINAL, ORAL, OR ANAL)?: YES, WITH: WOMEN ONLY, USE PROTECTION?: NO, HAVE YOU EVER HAD AN STD?: NO. HIV / HEP-C SCREENING HIV TEST OFFERED TO PATIENT:YES DATE OFFERED:07/10/2018 TEST ACCEPTED:NO HEP-C TEST OFFERED TO PATIENT:YES DATE OFFERED:07/10/2018 REASON:PATIENT DECLINED TEST ACCEPTED:NO REASON:PATIENT DECLINED BROCHURE PROVIDED TO PATIENTNO MORAVIAN [id number] MORMONISM LANGUAGE CITIZEN OF [place]. 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 DIET: CARBOHYDRATE CONTROLLED. EXERCISE: NO REGULAR EXERCISE. MARITAL STATUS: . PAIN CLINIC PFS, CLERGY, PUBLIC HEALTH REFERRALS HAS THE PATIENT BEEN EDUCATED REGARDING HIS/HER PLAN OF CARE?YES HAS THE PATIENT BEEN EDUCATED REGARDING PAIN, THE RISK FOR PAIN, THE IMPORTANCE OF EFFECTIVE PAIN MANAGEMENT, AND THE PAIN ASSESSMENT PROCESS?YES ADVANCE DIRECTIVE ADVANCE DIRECTIVE DISCUSSED WITH PATIENT:YES PATIENT STATES HE HAS NO ADVANCED DIRECTIVES. HE DECLINES INFORMATION ON HCP AT THIS TIME. HOSPITALIZATION/MAJOR DIAGNOSTIC PROCEDURE TONSILLECTOMY AGE 18 MALAR[place] 2000 PAIN MANAGEMENT 05/04/20 REVIEW OF SYSTEMS CONSTITUTIONAL: ANY RECENT FEVER NO . CHILLS NO . WEIGHT CHANGE OF UNKNOWN REASONS NO . MUSCULOSKELETAL: ANY UNUSUAL JOINT PAIN OR SWELLING NOT MENTIONED NO . SYSTEMIC LUPUS NO . ANY NEUROMUSCULAR DISORDER NOT MENTIONED NO . LYME DISEASE NO . GASTROENTEROLOGY: ANY NEW CHANGE IN BOWEL CONTROL? NO . HISTORY OF LIVER DISORDER NOT MENTIONED NO . HISTORY OF UNUSUAL ABDOMINAL PAIN OR CRAMPING NOT MENTIONED NO . NO CONSTIPATION. GENITOURINARY: ANY NEW CHANGE IN BLADDER CONTROL? NO . ANY RENAL/KIDNEY CONDITON NOT MENTIONED NO . NEUROLOGY: HISTORY OF TBI NOT MENTIONED NO . OTHER NEW NUMBNESS OR PAIN PATTERNS NOT MENTIONED NO . NEW ONSET DIZZINESS OR NEUROLOGICAL CHANGES NOT MENTIONED NO . HISTORY OF SEVERE HEADACHES NOT MENTIONED NO . HISTORY OF STROKE OR NEUROLOGICAL DISORDER NOT MENTIONED NO . CARDIOLOGY: HEART SURGERY NO . CONGESTIVE HEART FAILURE/FLUID OVERLOAD NOT MENTIONED NO . HISTORY OF CHEST PAIN,IRREGULAR HEART BEAT NOT MENTIONED NO . RESPIRATORY: SHORTNESS OF BREATH ON EXERTION, WHEEZES, UNUSUAL COUGH NOT MENTIONED NO . ENDOCRINOLOGY: ADRENAL GLAND OR THYROID DISORDERS NOT MENTIONED NO . UNUSUAL URINATION, DIZZINESS OR LETHARGY NOT MENTIONED NO . VITAL SIGNS WT 252.8 LBS, HT 68 IN, BMI 38.43 INDEX, BP 185/90 MM HG, HR 60 /MIN, RR 18 /MIN, TEMP 96.6 F, OXYGEN SAT % 97%, SAFE IN ENV? (Y/N) YES, NA INITIALS MD 08:43, REVIEWED BY: BELEN PIZANO RN. EXAMINATION GENERAL EXAMINATION: GENERALNO ACUTE DISTRESS, WELL NOURISHED AND HYDRATED. PSYCHAPPROPRIATE MOOD AND AFFECT . LUNGS:CLEAR TO AUSCULTATION BILATERALLY, NO WHEEZES, RHONCHI, RALES. HEART:NO MURMURS, REGULAR RATE AND RHYTHM. BACK:DENIES POINT TENDERNESS ALONG LUMBAR SPINE, SURROUNDING SKIN SHOWS NO ERYTHEMA, ECCHYMOSIS, INCREASED WARMTH, AND/OR SKIN ERUPTIONS NOTED. . MUSCULOSKELETAL:EQUAL STRENGTH OF THE LOWER EXTREMITIES BILATERALLY . ASSESSMENTS DEGENERATIVE DISC DISEASE, LUMBAR - M51.36 (PRIMARY) TREATMENT DEGENERATIVE DISC DISEASE, LUMBAR START OXYCODONE HCL TABLET, 5 MG, 1 TABLET NEEDED, ORALLY, DAILY NEEDED, 30 DAYS, 30 LAB: PAIN CENTER URINE TOX (SEND OUT) NOTES: 60-YEAR-OLD MALE IN FOR INITIAL PAIN CONSULT. GIVEN PRESENTING SYMPTOMS AND RESULTS OF PHYSICAL EXAMINATION RECOMMENDED OXYCODONE 5 MG DAILY NEEDED FOR PAIN WITH FOLLOW-UP IN ONE MONTH TO DETERMINE EFFICACY OF TREATMENT. PATIENT HAS EXPRESSED UNDERSTANDING OF AND WAS IN AGREEMENT WITH TREATMENT PLAN. GIVEN TIME TO ASK QUESTIONS AND EXPRESS CONCERNS. , ISTOP REGISTRY REVIEWED AND DEMONSTRATES COMPLLIANCE. (REF # ). OTHERS NOTES: PAT COMPLETED 08/03/20 1809 JS. PROCEDURE CODES FA211 ESTABILISHED PATIENT [facility] CHARGE DISPOSITION & COMMUNICATION FOLLOW UP 4 WEEKS (REASON: BACK PAIN IN MEDICATION) ELECTRONICALLY SIGNED BY CIELO CASTELLANOS ON 08/05/2020 AT 08:40 AM EST DISCLAIMER : THIS IS A VISIT SUMMARY EXTRACTED FROM THE [employer] CHART. IT IS NOT A COPY OF THE [employer] PROGRESS NOTE. TREVOR
== END ==
LOC: M PAIN 08:30
PROVIDERS: ATTEND Family Medicine
DX: M51.36 Other intervertebral disc degeneration, lumbar region (principal); E11.9 Type 2 diabetes mellitus without complications; I10 Essential (primary) hypertension; E78.5 Hyperlipidemia, unspecified; Z85.51 Personal history of malignant neoplasm of bladder; Z87.891 Personal history of nicotine dependence; Z79.82 Long term (current) use of aspirin; Z79.1 Long term (current) use of non-steroidal anti-inflammatories (NSAID); Z79.899 Other long term (current) drug therapy; Z88.5 Allergy status to narcotic agent

== ENCOUNTER → 2020-08-22 | Outpatient (RCR) | payer OTHER | LOC: M PT 07-25 08:15 | PROVIDERS: ATTEND Student in an Organized Health Care Education/Training Program | DX: M48.061 Spinal stenosis, lumbar region without neurogenic claudication (principal) ==

== ENCOUNTER → 2020-09-01 | Outpatient (CLI) | payer OTHER ==
--- NOTE | 2020-09-03 04:18 | ECWPNPC ---
PATIENT NAME: DEANDRA HIGHTOWER : 1960 GENDER: MALE VISIT DATE: 09/01/2020 DISCHARGE DATE: 09/01/20947 VISIT LOCKED DATE TIME: PHYSICIAN: ELIAN LAUREN PHYSICIAN PAGER NO: ACTIVE RESOURCE: ELIAN LAUREN REASON FOR APPOINTMENT 1. BACK PAIN IN MEDICATION HISTORY OF PRESENT ILLNESS GENERAL: - 60-YEAR-OLD MALE IN FOR CHRONIC PAIN FOLLOW-UP. AT LAST CLINIC VISIT PATIENT WAS STARTED ON OXYCODONE AND HE ADMITS TODAY THAT HE HAS NOT TAKEN THIS MEDICATION HIS PAIN HAS SUBSIDED. HE RATES HIS PAIN CURRENTLY AT A 0 OUT OF 10. FALL RISK SCREENING: SCREENING :ONE FALL WITHOUT INJURY IN THE PAST YEAR PAIN SCREENING: PATIENT HAS A COMPLAINT OF ACUTE OR CHRONIC PAIN :YES INTENSITY OF PAIN (SCALE OF 1 TO 10):0 NURSING NOTE: -. PAIN CENTER INTAKE QUESTIONS: DO YOU HAVE A HISTORY OF MRSA? :NO DO YOU TAKE A BLOOD THINNERS? :NO DO YOU HAVE ANY BLEEDING DISORDERS? :NO ANY NEW NUMBNESS OR WEAKNESS IN YOUR LEGS OR ARMS? :NO ANY PACEMAKER,DEFIBRILLATOR, OR DORSAL COLUMN STIMULATOR? :NO DO YOU HAVE ANY RASHES OR OPEN SORES? :NO ARE YOU ALLERGIC TO IV DYE? :NO ARE YOU DIABETIC? :YES ANY NEW PROBLEMS WITH YOUR MEDICATIONS? :NO HAVE YOU RECEIVED A VACCINE IN THE PAST 30 DAYS? :NO DO YOU PLAN TO RECEIVE A VACCINE IN THE NEXT 21 DAYS? :NO DO YOU NEED ANY PRESCRIPTION? :NO DO YOU TAKE ANY IMMUNOSUPPRESSIVE MEDICATIONS? :NO IS THERE A CHANCE YOU COULD BE ? :NO ARE YOU BREAST FEEDING? :NO CURRENT MEDICATIONS TAKING [employer] W/DEVICE KIT DIRECTED INTRADERMALLY DAILY TAKING ASPIR-81 81 MG TABLET DELAYED RELEASE 1 TABLET ORALLY ONCE A DAY TAKING DILTIAZEM HCL ER 240 MG CAPSULE EXTENDED RELEASE 24 HOUR 1 CAPSULE ON AN EMPTY STOMACH IN THE MORNING ORALLY ONCE A DAY TAKING LISINOPRIL 20 MG TABLET 1 TABLET ORALLY ONCE A DAY TAKING ATORVASTATIN CALCIUM 40 MG TABLET TAKE 1 TABLET DAILY ORALLY DAILY TAKING ALCOHOL SWABS 70 % PAD DIRECTED _ BEFORE BEDTIME TAKING PEN NEEDLES 12/06" 31G X 5 MM MISCELLANEOUS DIRECTED INTRADERMALLY BEFORE BEDTIME TAKING ESOMEPRAZOLE MAGNESIUM 20 MG CAPSULE DELAYED RELEASE 1 CAPSULE ORALLY ONCE A DAY TAKING GABAPENTIN 600 MG TABLET 1 CAPSULE ORALLY TID TAKING METFORMIN HCL 1000 MG TABS 1 TABLET WITH MEALS TWICE A DAY ORALLY 90 DAYS ORALLY BID TAKING TRULICITY 1.5 MG/0.5ML SOLUTION PEN-INJECTOR DIRECTED SUBCUTANEOUS WEEKLY TAKING BASAGLAR KWIKPEN 100 UNIT/ML SOLUTION PEN-INJECTOR 30 UNITS SUBCUTANEOUS DAILY TAKING ACETAMINOPHEN 650 MG TABLET EXTENDED RELEASE 2 TABLETS ORALLY EVERY 8 HRS PRN NOT-TAKING MELOXICAM 15 MG TABLET 1 TABLET ORALLY ONCE A DAY NOT-TAKING METHOCARBAMOL 750 MG TABLET 1 TABLET ORALLY TID PRN, NOTES: HASN'T TAKEN YET NOT-TAKING OXYCODONE HCL 5 MG TABLET 1 TABLET NEEDED ORALLY DAILY NEEDED NOT-TAKING METFORMIN HCL 1000 MG TABLET TAKE 1 TABLET TWICE A DAY NOT-TAKING CIALIS 5 MG TABLET 1 TABLET NEEDED ORALLY ONCE A DAY NOT-TAKING METHOCARBAMOL 750 MG TABLET 1 TABLET ORALLY EVERY 4 HRS NOT-TAKING JANUVIA 100 MG TABLET 1 TABLET ORALLY ONCE A DAY MEDICATION LIST REVIEWED AND RECONCILED WITH THE PATIENT PAST MEDICAL HISTORY DIABETES MELLITUS HYPERTENSION HYPERLIPIDEMIA BLADDER CANCER 10-YR ASCVD RISK: 27.9% CHRONIC LOW BACK PAIN DDD SPINAL STENOSIS ALLERGIES PERCOCET: UNEASINESS - SIDE EFFECTS SURGICAL HISTORY BLADDER SURGERY REMOVED TUMOR 03/2014 TURBT 05/2014 TURBT 01/14/15 CYSTOSCOPY 08/11/2019 TUMORS REMOVED FROM BLADDER 09/07/2019 CYSTOSCOPY 03/21/2020 TOSILLECTOMY AGE 18 FAMILY HISTORY FATHER: ALIVE 82 YRS, PACER, DIAGNOSED WITH DIABETES MOTHER: 82 YRS, PACER PATERNAL GRAND FATHER: PATERNAL GRAND MOTHER: MATERNAL GRAND FATHER: MATERNAL GRAND MOTHER: 3 BROTHER(S) , 1 SISTER(S) . 1 SON(S) , 1 DAUGHTER(S) . PATIENT STATES HIS PATERNAL GRANDFATHER HAD POLYPS REMOVED FROM HIS BLADDER. NO OTHER KNOWN FAMILY HISTORY OF ANYTHING RELATED TO UROLOGY. SON & DAUGHTER - ASTHMA, SEIZURES KIDSSIBLINGS - DIABETES, HTN. SOCIAL HISTORY GENERAL: TOBACCO USE ARE YOU A:FORMER SMOKER HOW LONG HAS IT BEEN SINCE YOU LAST SMOKED?1-5 YEARS LATEX QUESTIONNAIRE LATEX ALLERGY : HAVE YOU EVER DEVELOPED ANY TYPE OF REACTION AFTER HANDLING LATEX PRODUCTS SUCH RUBBER GLOVES, CONDOMS, DIAPHRAGMS, BALLOONS, SOCKS, OR UNDERWEAR?NO LATEX ALLERGY : HAVE YOU EVER DEVELOPED ANY TYPE OF REACTION DURING OR AFTER DENTAL APPOINTMENT, VAGINAL/RECTAL EXAMINATION, SURGICAL PROCEDURE, OR ANY OTHER EXPOSURE?NO DATE ASKED : 08/03/2020 LATEX RISK : HAVE YOU EVER HAD ANY DIFFICULTY BREATHING OR HIVES AFTER EATING OR HANDLING ANY FRUITS, OR VEGETABLES; SUCH KIWI, BANANAS, STONE FRUITS, OR CHESTNUTSNO LATEX RISK : DO YOU HAVE A PREVIOUS PERSONAL HISTORY OF MORE THAN NINE SURGERIES, SPINA BIFIDA, OR REPEATED CATHERIZATIONS? NO LATEX RISK : ARE YOU FREQUENTLY EXPOSED TO LATEX PRODUCTS IN YOUR OCCUPATION?NO ALCOHOL SCREENING DID YOU HAVE A DRINK CONTAINING ALCOHOL IN THE PAST YEAR?NO POINTS0 INTERPRETATIONNEGATIVE RECREATIONAL DRUG USE DRUG USE?NO CAFFEINE >5/DAY. SEXUAL HX HAD SEX IN THE LAST 12 MONTHS (VAGINAL, ORAL, OR ANAL)?: YES, WITH: WOMEN ONLY, USE PROTECTION?: NO, HAVE YOU EVER HAD AN STD?: NO. HIV / HEP-C SCREENING HIV TEST OFFERED TO PATIENT:YES DATE OFFERED:07/10/2018 TEST ACCEPTED:NO HEP-C TEST OFFERED TO PATIENT:YES DATE OFFERED:07/10/2018 REASON:PATIENT DECLINED TEST ACCEPTED:NO REASON:PATIENT DECLINED BROCHURE PROVIDED TO PATIENTNO CHURCH [id number] SABIANIST LANGUAGE [employer]. 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 DIET: CARBOHYDRATE CONTROLLED. EXERCISE: NO REGULAR EXERCISE. MARITAL STATUS: . PAIN CLINIC PFS, CLERGY, PUBLIC HEALTH REFERRALS HAS THE PATIENT BEEN EDUCATED REGARDING HIS/HER PLAN OF CARE?YES HAS THE PATIENT BEEN EDUCATED REGARDING PAIN, THE RISK FOR PAIN, THE IMPORTANCE OF EFFECTIVE PAIN MANAGEMENT, AND THE PAIN ASSESSMENT PROCESS?YES ADVANCE DIRECTIVE ADVANCE DIRECTIVE DISCUSSED WITH PATIENT:YES PATIENT STATES HE HAS NO ADVANCED DIRECTIVES. HE DECLINES INFORMATION ON HCP AT THIS TIME. HOSPITALIZATION/MAJOR DIAGNOSTIC PROCEDURE TONSILLECTOMY AGE 18 [place] 2000 PAIN MANAGEMENT 05/04/20 REVIEW OF SYSTEMS CONSTITUTIONAL: ANY RECENT FEVER NO . CHILLS NO . WEIGHT CHANGE OF UNKNOWN REASONS NO . GASTROENTEROLOGY: NEW UNEXPLAINABLE CHANGES IN BOWEL CONTROL NO . CONSTIPATION NO . GENITOURINARY: ANY NEW CHANGE IN BLADDER CONTROL? NO . NEUROLOGY: NEW ONSET DIZZINESS OR NEUROLOGICAL CHANGES NOT MENTIONED NO . NEW NUMBNESS OR PAIN PATTERNS NOT MENTIONED AND PERTINENT TO TODAY'S VISIT NO . CARDIOLOGY: NEW CHEST PRESSURE NO . NEW CHEST PAIN NO . RESPIRATORY: UNEXPLAINABLE COUGH NO . NEW SHORTNESS OF BREATH NO . VITAL SIGNS WT 250.6 LBS, HT 68 IN, BMI 38.10 INDEX, BP 174/81 MM HG, HR 69 /MIN, RR 20 /MIN, TEMP 98.0 F, OXYGEN SAT % 97%, SAFE IN ENV? (Y/N) Y, NA INITIALS ID [id number], REVIEWED BY: EM. EXAMINATION GENERAL EXAMINATION: GENERALNO ACUTE DISTRESS, WELL NOURISHED AND HYDRATED. PSYCHAPPROPRIATE MOOD AND AFFECT . LUNGS:CLEAR TO AUSCULTATION BILATERALLY, NO WHEEZES, RHONCHI, RALES. HEART:NO MURMURS, REGULAR RATE AND RHYTHM. ASSESSMENTS DEGENERATIVE DISC DISEASE, LUMBAR - M51.36 (PRIMARY) TREATMENT DEGENERATIVE DISC DISEASE, LUMBAR NOTES: CHRONIC PAIN FOLLOW-UP. GIVEN PRESENTING SYMPTOMS RECOMMEND FOLLOW-UP IN 3 MONTHS. PATIENT HAS EXPRESSED UNDERSTANDING OF AND WAS IN AGREEMENT WITH TREATMENT PLAN. GIVEN TIME TO ASK QUESTIONS AND EXPRESS CONCERNS. , ISTOP REGISTRY REVIEWED AND DEMONSTRATES COMPLLIANCE. (REF # [id number] ) BRINGS IN MEDICATIONS WHICH IS APPROPRIATE FOR WHAT WAS DISPENSED. RECENT URINE TOXICOLOGY REVIEWED. NO UNAUTHORIZED MEDICATIONS. NO ILLICIT SUBSTANCES AND PRESCRIBED MEDICATIONS WERE PRESENT. PROCEDURE CODES FA211 ESTABILISHED PATIENT [facility] CHARGE DISPOSITION & COMMUNICATION FOLLOW UP 3 MONTHS (REASON: BACK PAIN) ELECTRONICALLY SIGNED BY CIELO CASTELLANOS ON 09/02/2020 AT 12:43 PM EST DISCLAIMER : THIS IS A VISIT SUMMARY EXTRACTED FROM THE [employer] CHART. IT IS NOT A COPY OF THE [employer] PROGRESS NOTE. TREVOR
== END ==
LOC: M PAIN 09:15
PROVIDERS: ATTEND Family Medicine
DX: M51.36 Other intervertebral disc degeneration, lumbar region (principal); G89.29 Other chronic pain; E11.9 Type 2 diabetes mellitus without complications; Z87.891 Personal history of nicotine dependence; Z88.5 Allergy status to narcotic agent; Z79.4 Long term (current) use of insulin; Z79.82 Long term (current) use of aspirin; Z79.899 Other long term (current) drug therapy

== ENCOUNTER 2020-09-21 07:00 | Outpatient (RCR) | payer OTHER | END 2020-09-22 | LOC: M PT 07:00 | PROVIDERS: ATTEND Student in an Organized Health Care Education/Training Program | DX: Z51.89 Encounter for other specified aftercare (principal); M48.061 Spinal stenosis, lumbar region without neurogenic claudication ==

== ENCOUNTER → 2020-11-22 | Outpatient (REF) | payer OTHER ==
[~2020-11-22] MED LIST changes: +GABA-282; -GABA-843; -LISI-538 PO; +LISI20TA33 PO; +METH-1165; -METH750T2
[2020-11-22 10:49] LABS: HEMOGLOBIN A1c 7.3 %
[2020-11-22 11:10] LABS: CREATININE, URINE 55.9 MG/DL; MALB URINE SIEMENS 55.6 MG/L; MAU/CREAT RATIO 99.4 MCG/MG (0.0-30.0)
== END ==
LOC: M SFHCPLAZ 08:05
PROVIDERS: ATTEND Student in an Organized Health Care Education/Training Program
DX: E11.9 Type 2 diabetes mellitus without complications (principal)

== ENCOUNTER → 2020-12-20 | Outpatient (CLI) | payer OTHER | LOC: M CARPUL 09:09 | PROVIDERS: ATTEND Student in an Organized Health Care Education/Training Program | DX: M79.89 Other specified soft tissue disorders (principal) ==

== ENCOUNTER → 2020-12-27 | Outpatient (REF) | payer OTHER ==
[2020-12-27 15:47] LABS: HEMATOCRIT 46.5 % (42.0-52.0); HEMOGLOBIN 14.7 g/dl (13.5-17.5); MEAN CORPUSCULAR HEMOGLOBIN 26.4 pg (27.0-33.0); MEAN CORPUSCULAR HGB CONC 31.6 g/dl (32.0-36.5); MEAN CORPUSCULAR VOLUME 83.5 fl (80.0-96.0); PLATELET COUNT, AUTOMATED 281 10^3/uL (150-450); RED BLOOD COUNT 5.57 10^6/uL (4.30-6.10); WHITE BLOOD COUNT 8.1 10^3/uL (4.0-10.0)
[2020-12-27 16:20] LABS: ALBUMIN 3.9 GM/DL (3.2-5.2); ALT/SGPT 20 U/L (12-78); BILIRUBIN,TOTAL 0.4 MG/DL (0.2-1.0); BLOOD UREA NITROGEN 13 MG/DL (7-18); CALCIUM LEVEL 9.4 MG/DL (8.8-10.2); CARBON DIOXIDE LEVEL 30 MEQ/L (21-32); CHLORIDE LEVEL 106 MEQ/L (98-107); CREATININE FOR GFR 0.74 MG/DL (0.70-1.30); FREE T4 1.02 NG/DL (0.76-1.46); GLOMERULAR FILTRATION RATE > 60.0 (>49); GLUCOSE, FASTING 106 MG/DL (70-100); NT-PRO BNP 53 PG/ML (<125); POTASSIUM SERUM 4.8 MEQ/L (3.5-5.1); SODIUM LEVEL 139 MEQ/L (136-145); TOTAL PROTEIN 6.9 GM/DL (6.4-8.2)
== END ==
LOC: M SFHCPLAZ 12:34
PROVIDERS: ATTEND Family Medicine
DX: M79.89 Other specified soft tissue disorders (principal)

== ENCOUNTER → 2021-03-08 | Outpatient (CLI) | payer OTHER ==
--- NOTE | 2021-03-08 17:09 | REP ---
INDICATION: LOCALIZED EDEMA. COMPARISON: 04/27/2014 the only prior TECHNIQUE: Noncontrast enhanced standard helical technique FINDINGS: The lung bases are stable Limited evaluation of the solid intraabdominal organs and gallbladder show no gross abnormalities or significant changes from the prior exam when the examination is compared to the noncontrast portion of the prior examination since today's examination is without contrast. Limited evaluation of the pancreas, adrenal glands, and kidneys show no gross abnormalities or significant changes. Limited evaluation of the bowel loops and the mesenteries show no gross abnormalities or significant changes. There is no free fluid or free air. There is no mass or adenopathy. Limited evaluation of the abdominal aorta and para-aortic regions show no gross abnormalities or significant changes. Once again, there is a right-sided bladder ear herniating into the right inguinal canal. This is essentially unchanged this is seen in conjunction with a large amount of mesenteric fat herniating with the bladder ear. Bone window technique throughout the examination shows no change in the imaged osseous structures. IMPRESSION: No significant change compared to the prior exam with findings and limitations as described above. <Electronically signed by Garry Euceda > 03/08/21 7601
== END ==
LOC: M RAD 14:42
PROVIDERS: ATTEND Family Medicine
DX: R60.0 Localized edema (principal); C67.9 Malignant neoplasm of bladder, unspecified

== ENCOUNTER → 2021-03-29 | Outpatient (REF) | payer OTHER | LOC: M SMT 17:18 | PROVIDERS: ATTEND Urology | DX: Z85.51 Personal history of malignant neoplasm of bladder (principal) ==

== ENCOUNTER → 2021-03-31 | Outpatient (CLI) | payer OTHER ==
--- NOTE | 2021-03-31 16:32 | REP ---
INDICATION: CAT LEG EDEMA ? DVT COMPARISON: None. TECHNIQUE: Fermin scale and color Doppler evaluation using linear high frequency transducer. FINDINGS: Ultrasound examination of the right and left lower extremity deep venous structures from the common femoral vein through the popliteal veins demonstrates normal compressibility flow and wave patterns in response to respiration and augmentation. Limited evaluation of the bilateral calf veins due to body habitus. There is no evidence for deep venous thrombosis. IMPRESSION: No evidence for deep venous thrombosis. <Electronically signed by Tobias Murphy > 03/31/21 [id number]
== END ==
LOC: M RAD 15:20
PROVIDERS: ATTEND Student in an Organized Health Care Education/Training Program
DX: R22.43 Localized swelling, mass and lump, lower limb, bilateral (principal)

== ENCOUNTER → 2021-04-10 | Outpatient (REF) | payer OTHER | LOC: M SFHCPLAZ 15:25 | PROVIDERS: ATTEND Family Medicine | DX: E11.8 Type 2 diabetes mellitus with unspecified complications (principal); Z53.9 Procedure and treatment not carried out, unspecified reason ==

== ENCOUNTER → 2021-06-08 | Outpatient (CLI) | payer OTHER | LOC: M PAIN 10:30 | PROVIDERS: ATTEND Anesthesiology | DX: M51.16 Intervertebral disc disorders with radiculopathy, lumbar region (principal); E11.9 Type 2 diabetes mellitus without complications; I10 Essential (primary) hypertension; E78.5 Hyperlipidemia, unspecified; Z85.51 Personal history of malignant neoplasm of bladder; Z87.891 Personal history of nicotine dependence; Z79.82 Long term (current) use of aspirin; Z79.891 Long term (current) use of opiate analgesic; Z79.899 Other long term (current) drug therapy; Z88.5 Allergy status to narcotic agent ==

== ENCOUNTER → 2021-07-06 | Outpatient (CLI) | payer OTHER ==
--- NOTE | 2021-07-07 17:32 | REPVR ---
PROCEDURE INFORMATION: Exam: MR Lumbar Spine Without Contrast Exam date and time: 07/06/2021 2:12 PM Age: 61 years old Clinical indication: Low back pain; Additional info: Intervertebral disc disorder w/ radiculopathy TECHNIQUE: Imaging protocol: Multiplanar magnetic resonance images of the lumbar spine without intravenous contrast. COMPARISON: CR SPINE LS COMPLETE 09/25/2019 4:17 PM FINDINGS: Vertebral body heights are maintained. No abnormal marrow signal. No cord compression. No abnormal cord signal. Conus medullaris terminates at the L1 level. Paravertebral soft tissues are unremarkable. L1-L2: Facet hypertrophy causes mild bilateral foraminal narrowing. No significant canal narrowing. L2-L3: Broad-based disc bulge causes mild bilateral foraminal narrowing. Mild canal narrowing. L3-L4: Broad-based disc bulge and facet hypertrophy cause moderate canal narrowing with effacement of the bilateral lateral recesses. Moderate bilateral foraminal narrowing. L4-L5: Broad-based disc bulge and facet hypertrophy cause moderate canal narrowing with effacement of the bilateral lateral recesses. Severe bilateral foraminal narrowing. L5-S1: Facet hypertrophy causes mild to moderate bilateral foraminal narrowing. No significant canal narrowing. IMPRESSION: Multilevel spondylotic changes of the lumbar spine, as detailed above. Electronically signed by: Jarek Frances On 07/07/2021 17:31:41 PM
== END ==
LOC: M PLAIMG 13:32
PROVIDERS: ATTEND Anesthesiology
DX: M51.16 Intervertebral disc disorders with radiculopathy, lumbar region (principal); M47.26 Other spondylosis with radiculopathy, lumbar region

== ENCOUNTER → 2021-08-29 | Outpatient (REF) | payer OTHER | LOC: M SFHCPLAZ 15:04 | PROVIDERS: ATTEND Student in an Organized Health Care Education/Training Program | DX: E11.9 Type 2 diabetes mellitus without complications (principal); Z85.51 Personal history of malignant neoplasm of bladder; Z53.9 Procedure and treatment not carried out, unspecified reason ==

== ENCOUNTER → 2021-12-11 | Outpatient (REF) | payer OTHER | LOC: M SFHCPLAZ 14:44 | PROVIDERS: ATTEND Family Medicine | DX: Z53.9 Procedure and treatment not carried out, unspecified reason (principal) ==

== ENCOUNTER → 2022-12-05 | Outpatient (REF) | payer OTHER ==
[2022-12-05 18:26] LABS: RSV AMPLIFICATION NEGATIVE (NEGATIVE)
== END ==
LOC: M SFHCPLAZ 16:58
PROVIDERS: ATTEND Student in an Organized Health Care Education/Training Program
DX: J06.9 Acute upper respiratory infection, unspecified (principal)

== ENCOUNTER → 2022-12-31 | Outpatient (REF) | payer OTHER | LOC: M SFHCPLAZ 14:51 | PROVIDERS: ATTEND Family Medicine | DX: R03.0 Elevated blood-pressure reading, without diagnosis of hypertension (principal); E11.29 Type 2 diabetes mellitus with other diabetic kidney complication; Z53.9 Procedure and treatment not carried out, unspecified reason ==

== ENCOUNTER 2023-07-04 07:20 | Outpatient (RCR) | payer OTHER | END 2023-07-23 | LOC: M PT 07:20 | PROVIDERS: ATTEND Student in an Organized Health Care Education/Training Program | DX: M62.08 Separation of muscle (nontraumatic), other site (principal) ==

== ENCOUNTER → 2023-08-30 | Outpatient (REF) | payer OTHER ==
[2023-08-30 14:56] LABS: APPEARANCE, URINE HAZY (CLEAR); BACTERIA, URINE AUTO NEGATIVE (NEGATIVE); BILIRUBIN, URINE AUTO NEGATIVE (NEGATIVE); BLOOD, URINE BLOOD NEGATIVE (NEGATIVE); COLOR, URINE YELLOW (YELLOW); GLUCOSE, URINE (UA) AUTO 3+ mg/dL (NEGATIVE); KETONE, URINE AUTO NEGATIVE (NEGATIVE); LEUKOCYTE ESTERASE, URINE AUTO 2+ (NEGATIVE); NITRITE, URINE AUTO NEGATIVE (NEGATIVE); PROTEIN, URINE AUTO NEGATIVE (NEGATIVE); RBC, URINE AUTO 3 /HPF (0-3); SPECIFIC GRAVITY URINE AUTO 1.031 (1.002-1.035); SQUAMOUS EPITHELIAL CELL UR AU 0 /HPF (0-6); UROBILINOGEN, URINE AUTO 0.2 mg/dL (0.0-2.0); WBC, URINE AUTO 63 /HPF (0-3)
== END ==
LOC: M SMT 13:37
PROVIDERS: ATTEND Urology
DX: N39.0 Urinary tract infection, site not specified (principal)

== ENCOUNTER → 2023-09-20 | Outpatient (CLI) | payer OTHER ==
[~2023-09-20] MED LIST changes: +GASTROGRAFIN SOLUTION 30ML ONE
== END ==
LOC: M PLAIMG 07:23
PROVIDERS: ATTEND Urology
DX: K40.20 Bilateral inguinal hernia, without obstruction or gangrene, not specified as recurrent (principal)
CPT/HCPCS: 74176; Q9963

== ENCOUNTER 2023-11-08 09:00 | Day surgery (SDC) | payer OTHER ==
[~2023-11-08] VITALS: Ht 172.7 cm; Wt 104.8 kg
[~2023-11-08 09:00] MED LIST changes: +BASA100I SC; +ECOT81TA5 PO; +ESOM1CAP5 PO; +FARX1TAB3 PO; -GASTROGRAFIN SOLUTION 30ML ONE; +LISI40TA4 PO; +OXYB-54 PO; +TAMS1CAP17 PO
[2023-11-08] MEDS ORDERED: LR 1,000 ML IV SCH (09:45)
[2023-11-08] MEDS ORDERED: ROCURONIUM BROMIDE 50MG/5ML VIAL As Ordered ONE (10:32)
[2023-11-08] MEDS ORDERED: LIDOCAINE 2% 100MG/5ML SDV (FOR ANES.) As Ordered ONE (10:33)
[2023-11-08] MEDS ORDERED: propofoL 200 MG/20 ML VIAL As Ordered ONE (10:33)
[2023-11-08] MEDS ORDERED: fentaNYL 100 MCG/2 ML INJECTION As Ordered ONE (10:33)
[2023-11-08] MEDS ORDERED: MIDAZOLAM INJ 2MG/2ML VIAL As Ordered ONE (10:33)
[2023-11-08] MEDS ORDERED: ceFAZolin SOD 2 GM in IV 1 EA IV ONE (11:00)
[2023-11-08] MEDS: ceFAZolin 2 GM/D5W 50 ML IV BAG As Ordered ONE (11:07)
[2023-11-08] MEDS ORDERED: ACETAMINOPHEN 1000MG 100ML IV BAG As Ordered ONE (11:33)
[2023-11-08] MEDS ORDERED: SUGAMMADEX SODIUM 500 MG/5 ML VIAL (BRIDION) As Ordered ONE (11:47)
[2023-11-08] MEDS ORDERED: ONDANSETRON 4MG 2ML VIAL As Ordered ONE (11:48)
[2023-11-08] MEDS ORDERED: KETOROLAC 60MG 2ML VIAL As Ordered ONE (12:00)
[2023-11-08] MEDS ORDERED: HYDROmorphone HCL 2MG/ML 1ML VIAL As Ordered ONE (12:01)
[2023-11-08] MEDS: LIDOCAINE W/EPINEPHRINE 1% 20ML VIAL As Ordered ONE (14:53)
[2023-11-08] MEDS ORDERED: fentaNYL 100 MCG/2 ML INJECTION IV PRN (14:55)
[2023-11-08] MEDS ORDERED: ONDANSETRON 4MG 2ML VIAL IV PRN (14:55)
[2023-11-08] MEDS ORDERED: NORCO, ANEXSIA 5/325MG TABLET (HYDROcodone/ACETAMINOPHEN) PO PRN (15:30)
[2023-11-08 16:40] VITALS: BP 148/74; TEMP 99.1; O2SAT 96
== END 2023-11-08 17:36 | disposition home or self-care (01) ==
LOC: M SDC 09:00
PROVIDERS: ATTEND Surgery
DX: K40.20 Bilateral inguinal hernia, without obstruction or gangrene, not specified as recurrent (principal); E11.9 Type 2 diabetes mellitus without complications; I10 Essential (primary) hypertension; E78.00 Pure hypercholesterolemia, unspecified; N40.0 Benign prostatic hyperplasia without lower urinary tract symptoms; Z79.899 Other long term (current) drug therapy; Z79.4 Long term (current) use of insulin; Z79.82 Long term (current) use of aspirin; Z85.51 Personal history of malignant neoplasm of bladder; Z88.5 Allergy status to narcotic agent
CPT/HCPCS: 49650; C1781; J0131; J0690; J1100; J1170; J1885; J2250; J2405; J3010; S2900

== ENCOUNTER → 2023-11-21 | Outpatient (CLI) | payer OTHER ==
[2023-11-21 15:41] LABS: BLOOD UREA NITROGEN 18 MG/DL (9-23); CREATININE FOR GFR 0.75 MG/DL (0.70-1.30); GLOMERULAR FILTRATION RATE > 60.0 (>49)
== END ==
LOC: M LAB 14:47
PROVIDERS: ATTEND Physician Assistant
DX: K40.20 Bilateral inguinal hernia, without obstruction or gangrene, not specified as recurrent (principal)

== ENCOUNTER → 2023-11-22 | Outpatient (CLI) | payer OTHER ==
[~2023-11-22] MED LIST changes: +GASTROGRAFIN SOLUTION 30ML As Ordered ONE; +ISOVUE-370 76% 100ML VIAL As Ordered ONE
== END ==
LOC: M RAD 07:52
PROVIDERS: ATTEND Physician Assistant
DX: K40.20 Bilateral inguinal hernia, without obstruction or gangrene, not specified as recurrent (principal)
CPT/HCPCS: 74177; Q9963; Q9967

== ENCOUNTER → 2024-02-06 | Outpatient (CLI) | payer MEDICARE, OTHER ==
[~2024-02-06] MED LIST changes: -GASTROGRAFIN SOLUTION 30ML As Ordered ONE; -ISOVUE-370 76% 100ML VIAL As Ordered ONE
== END ==
LOC: M RAD 06:24
PROVIDERS: ATTEND Student in an Organized Health Care Education/Training Program
DX: I71.40 Abdominal aortic aneurysm, without rupture, unspecified (principal)

== ENCOUNTER → 2024-06-15 | Outpatient (REF) | payer MEDICARE, OTHER ==
[~2024-06-15] MED LIST changes: +ESOM1CAP20 PO; -ESOM1CAP5 PO
== END ==
LOC: M SMT 10:03
PROVIDERS: ATTEND Urology
DX: C67.9 Malignant neoplasm of bladder, unspecified (principal)

== ENCOUNTER → 2024-11-26 | Outpatient (CLI) | payer OTHER ==
[~2024-11-26] MED LIST changes: -CYCL5TAB; +CYCL5TAB4; +GABA-1172; -GABA-282
== END ==
LOC: M RAD 13:35
PROVIDERS: ATTEND Student in an Organized Health Care Education/Training Program
DX: Z12.2 Encounter for screening for malignant neoplasm of respiratory organs (principal); Z87.891 Personal history of nicotine dependence; R91.8 Other nonspecific abnormal finding of lung field